=== PATIENT | male | born 1960 | race Two or more races ===

== ENCOUNTER 2017-09-13 12:34 | Emergency (ER) | payer MEDICAID, OTHER ==
[~2017-09-13] VITALS: Ht 175.3 cm; Wt 133.8 kg
[2017-09-13 12:42] VITALS: BP 142/85
[2017-09-13] MEDS ORDERED: TDAP [DIPH/PERTUSSIS/TET] 0.5 ML VIAL IM ONE ×2 (13:17→13:30)
== END 2017-09-13 13:20 | disposition home or self-care (01) ==
LOC: ER 12:37
DX: S69.92XA Unspecified injury of left wrist, hand and finger(s), initial encounter (principal); F10.10 Alcohol abuse, uncomplicated; F17.200 Nicotine dependence, unspecified, uncomplicated; Z60.2 Problems related to living alone; V49.49XA Driver injured in collision with other motor vehicles in traffic accident, initial encounter; Y93.89 Activity, other specified; Y92.89 Other specified places as the place of occurrence of the external cause; Y99.8 Other external cause status
CPT/HCPCS: 90471; 90715; 99283; 99406; A4606; Z7610